=== PATIENT | female | born 1955 | race Caucasian/White ===

== ENCOUNTER 2018-01-30 09:44 | Day surgery (SDC) | payer BC ==
[2018-01-28 14:27] VITALS: BMI 20.6
[~2018-01-30 09:44] MED LIST: LACTATED RINGERS 1,000 ML IV SCH
[2018-01-30 10:44] VITALS: RESP 18; TEMP 97.4
[2018-01-30] MEDS ORDERED: LIDOCAINE 1% 20 ML VIAL (10MG/ML) FOR IV START INTRADERMA ONE (10:47)
[2018-01-30] MEDS ORDERED: fentaNYL (PF) 50 MCG/ML 2 ML AMP ONE (11:12)
[2018-01-30] MEDS ORDERED: PROPOFOL 10 MG/ML 20 ML VIAL IV ONE (11:12)
[2018-01-30] MEDS ORDERED: MIDAZOLAM 2 MG/2 ML VIAL ONE (11:12)
--- NOTE | 2018-01-30 11:32 | P.PCN ---
Date of Procedure: 01/30/18 Procedure(s) Performed: BRIEF HISTORY: Patient is a 63-year-old pleasant female, scheduled for an elective colonoscopy as a part of screening for colorectal neoplasia. PROCEDURE PERFORMED: Colonoscopy. PREOPERATIVE DIAGNOSIS: Screening for colon cancer. IV sedation per Anesthesia. PROCEDURE: After informed consent was obtained, the patient, was brought into the endoscopy unit. IV sedation was administered by Anesthesia under continuous monitoring. Digital rectal examination was normal. Initially the Olympus CF- 160 flexible video colonoscope was then inserted in the rectum, gradually advanced into the cecum without any difficulty. Careful examination was performed as the scope was gradually being withdrawn. Ileocecal valve and the appendiceal orifice were visualized and appeared normal. Prep was excellent. Mucosa of the cecum, ascending colon, transverse colon, descending colon, sigmoid colon, and rectum appeared normal. Retroflexion was performed in the rectum and no lesions were seen. The patient tolerated the procedure well. IMPRESSION: Normal-appearing colon from rectum to cecum with no evidence of colorectal neoplasia. RECOMMENDATIONS: Findings of this examination were discussed with the patient is a family. She was advised to have a repeat screening colonoscopy in 10 years.
[2018-01-30 11:45] VITALS: PULSE 60
[2018-01-30 11:53] VITALS: BP 116/80
== END 2018-01-30 12:13 | disposition home or self-care (01) ==
LOC: ORWHC2ENDO 09:44
PROVIDERS: ATTEND Internal Medicine Gastroenterology
DX: Z12.11 Encounter for screening for malignant neoplasm of colon (principal); Z88.0 Allergy status to penicillin; Z88.2 Allergy status to sulfonamides; Z88.1 Allergy status to other antibiotic agents
CPT/HCPCS: J2250; J3010; J2704; G0121

== ENCOUNTER → 2023-03-08 | Outpatient (CLI) | payer MEDICARE, OTHER ==
[2023-03-08 13:51] LABS: African American GFR (CKD) >90 (>60 ml/min/1.73 sqM); Blood Urea Nitrogen 25 mg/dL (7-17); Non-African American GFR(CKD) 83 (>60 ml/min/1.73 sqM)
--- NOTE | 2023-03-08 15:18 | CT ---
EXAMINATION TYPE: CT angio chest DATE OF EXAM: 03/08/2023 COMPARISON: None HISTORY: thoracic aneurysm CT DLP: 291 mGycm CONTRAST: CTA thoracic aorta with 3-D reconstruction is performed and with IV Contrast, patient injected with 1 00 mL of Isovue 370. Contrast CTA of the thoracic aorta was performed from the lung apex through the upper abdomen. 3D re construction imaging obtained at a separate workstation. CT Chest: THORACIC AORTA: 4 cm aneurysm ascending thoracic aorta without complicating factor. Aortic arch and d escending thoracic aorta is of normal caliber. Mild atheromatous changes seen. There is no evidence for dissection or periaortic collection. LUNGS: The lungs are clear and free of infiltrate or atelectasis. Bronchiectasis is seen within the r ight middle lobe and left upper lobe in the region of the lingula. There is associated limited atelec tasis or infiltrate. Scattered subpleural and pleural nodules within the upper lobes measuring up to 6 mm. MEDIASTINUM: No evidence for mediastinal hematoma. The heart is not enlarged. No evidence for med iastinal mass or adenopathy. HILAR STRUCTURES: No evidence for mass. No hilar adenopathy is appreciated. OTHER: No significant abnormality. IMPRESSION- 1. Mild ascending thoracic aortic aneurysm. 2. Bronchiectasis and areas of atelectasis or focal infiltrate. Scattered nodularity is nonspecific. Follow-up in 6 months is advised.
--- NOTE | 2023-03-08 16:55 | CA ---
Transthoracic Echo Report Name: Alicja Washington Age: 68 Gender: F : 1955 Exam Date: 03/08/2023 14:31 Exam Location: [facility] Ht (in): 65 Wt (lb): 126 Ordering Physician: Eve Layne MD Attending/Referring Phys: Eve Layne MD Rail Detector Car Operator Karen Sunshine RDCS Procedure CPT: Indications: I65.23 OCCLUSION AND STENOSIS OF BILATERAL CAROTID Cardiac Hx: Fam hx of cad Technical Quality: Good Contrast 1: Total Dose (mL): Contrast 2: Total Dose (mL): MEASUREMENTS (Male / Female) Normal Values 2D ECHO LV Diastolic Diameter PLAX 3.6 cm 4.2 - 5.9 / 3.9 - 5.3 cm LV Systolic Diameter PLAX 2.3 cm IVS Diastolic Thickness 0.8 cm 0.6 - 1.0 / 0.6 - 0.9 cm LVPW Diastolic Thickness 0.8 cm 0.6 - 1.0 / 0.6 - 0.9 cm LV Relative Wall Thickness 0.4 RV Internal Dim ED PLAX 3.1 cm LA Systolic Diameter LX 2.8 cm 3.0 - 4.0 / 2.7 - 3.8 cm LV Diastolic Volume MOD 4C 57.5 cm??? LV Systolic Volume MOD 4C 17.7 cm??? LV Ejection Fraction MOD 4C 69.3 % LV Cardiac Index MOD 4C 1526.5 cm???/min???m??? LV Diastolic Length 4C 7.8 cm LV Systolic Length 4C 5.9 cm LV Diastolic Volume MOD 2C 68.8 cm??? LV Systolic Volume MOD 2C 15.9 cm??? LV Ejection Fraction MOD 2C 76.8 % LV Cardiac Index MOD 2C 2024.9 cm???/min???m??? LV Diastolic Length 2C 7.2 cm LV Systolic Length 2C 5.4 cm LA Volume 37.2 cm??? 18 - 58 / 22 - 52 cm??? LA Volume Index 23.0 cm???/m??? 16 - 28 cm???/m??? M-MODE Aortic Root Diameter MM 2.8 cm MV E Point Septal Separation 0.2 cm AV Cusp Separation MM 1.9 cm DOPPLER AV Peak Velocity 113.7 cm/s AV Peak Gradient 5.2 mmHg MV Area PHT 4.0 cm??? Mitral E Point Velocity 88.5 cm/s Mitral A Point Velocity 68.0 cm/s Mitral E to A Ratio 1.3 MV Deceleration Time 189.4 ms MV E' Velocity 8.2 cm/s Mitral E to MV E' Ratio 10.8 TR Peak Velocity 236.4 cm/s TR Peak Gradient 22.3 mmHg Right Ventricular Systolic Press 26.9 mmHg FINDINGS Left Ventricle Left ventricular ejection fraction is estimated at 60-65 %. Small left ventricular cavity. Left ventricular wall thickness normal. Right Ventricle Normal right ventricular size. Right ventricular systolic pressure within normal limits. Right Atrium Normal right atrial size. Left Atrium Normal left atrial size. Mitral Valve Structurally normal mitral valve. No evidence for mitral valve prolapse. No mitral stenosis. Trace mitral regurgitation. Aortic Valve Trileaflet aortic valve. No aortic valve stenosis or regurgitation. Tricuspid Valve Structurally normal tricuspid valve. Mild tricuspid regurgitation. Pulmonic Valve Structurally normal pulmonic valve. No pulmonic regurgitation. Pericardium No pericardial effusion. Aorta Normal size aortic root and proximal ascending aorta. CONCLUSIONS Normal LV size and systolic function Normal valves Previewed by: Dr. Karson Hernandez MD (Electronically Signed) Final Date: 08 March 2023 16:54
--- NOTE | 2023-03-08 19:14 | US ---
EXAMINATION TYPE: US carotid duplex BILAT DATE OF EXAM: 03/08/2023 COMPARISON: NONE CLINICAL INDICATION: Female, 68 years old with history of I65.23 OCCLUSION AND STENOSIS OF BILATERAL CAROTID; TECHNIQUE: Carotid duplex ultrasound examination. Indirect Doppler criteria was utilized. FINDINGS: EXAM MEASUREMENTS: RIGHT: Peak Systolic Velocity (PSV) cm/sec ----- Right CCA: 54.0 ----- Right ICA: 106.0 ----- Right ECA: 56.6 ICA/CCA ratio: 2.0 RIGHT: End Diastole cm/sec ----- Right CCA: 18.5 ----- Right ICA: 35.7 ----- Right ECA: 10.6 LEFT: Peak Systolic Velocity (PSV) cm/sec ----- Left CCA: 57.2 ----- Left ICA: 77.9 ----- Left ECA: 40.4 ICA/CCA ratio: 1.4 LEFT: End Diastole cm/sec ----- Left CCA: 23.4 ----- Left ICA: 51.2 ----- Left ECA: 9.2 VERTEBRALS (direction of flow): Right Vertebral: Antegrade Left Vertebral: Antegrade Rhythm: Normal Right ICA/CCA ratio 2.0 IMPRESSION: Less than 50% stenosis of bilateral carotid bifurcation by peak systolic velocity. Note there is incr eased ratio on the right which could represent 50-69% stenosis. Criteria for Assigning % of Stenosis / Diameter reduction (Estimation based on the indirect measurements of the internal carotid artery velocities (ICA PSV). 1. Normal (no stenosis)=ICA PSV < 125 cm/s: ratio < 2.0: ICA EDV<40 cm/s. 2. Less than 50% stenosis=ICA PSV < 125 cm/s: ratio < 2.0: ICA EDV<40 cm/s. 3. 50 to 69% stenosis=ICA PSV of 125 to 230 cm/s: ration 2.0 ? 4.0: ICA EDV 40-100 cm/s. 4. Greater than 70% stenosis to near occlusion= ICA PSV > 230 cm/s: ratio > 4.0: ICA EDV > 100 cm/s. 5. Near occlusion= ICA PSV velocities may be low or undetectable: variable ratio and ICA EDV. 6. Total occlusion=unable to detect flow.
== END | disposition home or self-care (01) ==
LOC: RADCTMAIN 13:01
PROVIDERS: ATTEND Internal Medicine
DX: I65.23 Occlusion and stenosis of bilateral carotid arteries (principal); I71.21 Aneurysm of the ascending aorta, without rupture; J47.9 Bronchiectasis, uncomplicated; J98.11 Atelectasis; R91.8 Other nonspecific abnormal finding of lung field
CPT/HCPCS: 93306; 82565; 84520; 93880; 71275; 36415; Q9967

== ENCOUNTER → 2023-11-12 | Outpatient (CLI) | payer MEDICARE, OTHER ==
--- NOTE | 2023-11-13 13:46 | BD ---
EXAMINATION TYPE: Axial Bone Density DATE OF EXAM: 11/12/2023 CLINICAL HISTORY: 68 years old Female. ICD-10 CODE: Z87.39 PERSONAL HISTORY OF OSTEOPENIA Height: 64.5 Weight: 130.4 FRAX RISK QUESTIONS: Alcohol (3 or more units per day): no Family History (Parent hip fracture): mother Glucocorticoids (More than 3mos): no (Ex: prednisone, prednisolone, methylprednisolone, dexamethasone, and hydrocortisone). History of Fracture in Adulthood: no Secondary Osteoporosis: 1. Type 1 Diabetes: no 2. Hyperthyroidism: no 3. Menopause before 45: no 4. Malnutrition: no 5. Chronic liver disease: no Rheumatoid Arthritis: no Current Tobacco Use: no RISK FACTORS HISTORY OF: Hip Fracture (Right/Left): no Spine Fracture: no History of Wrist Fracture: no Surgery to Spine/Hip(right/left)/Wrist (right/left): no MEDICATIONS: Thyroid Medications: no Osteoporosis Medications: no EXAM MEASUREMENTS: Bone mineral densitometry was performed using the [employer]XPin System. Bone mineral density as measured about the Lumbar spine is: ----- L1-L4(G/cm2): 1.048 T Score Values are as follows: ----- L1: -1.7 ----- L2: -2.2 ----- L3: -1.1 ----- L4: 0.1 ----- L1-L4: -1.1 Z Score Values are as follows: ----- L1: 0.1 ----- L2: -0.4 ----- L3: 0.8 ----- L4: 1.9 ----- L1-L4: 0.7 Baseline Study Bone mineral density about the R hip (g/cm2): 0.807 Bone mineral density about the L hip (g/cm2): 0.782 T Score values are as follows: -----R Neck: -1.6 -----L Neck: -1.7 -----R Total: -1.6 -----L Total: -1.8 Z Score values are as follows: -----R Neck: 0.0 -----L Neck: -0.1 -----R Total: -0.2 -----L Total: -0.4 Baseline Study FRAX%s: The graph provided illustrates a 16.5% chance for a major osteoporotic fx and a 1.8% chance f or the hips probability for fx in 10 years time. IMPRESSION: Osteopenia (T Score between -2.5 and -1). There is slightly increased risk of fracture and the patient may be considered for treatment. Re-Screen 2-5 years. NOTE: T-SCORE=SD OF THE YOUNG ADULT MEAN.
== END | disposition home or self-care (01) ==
LOC: RADBDWWP 15:42
PROVIDERS: ATTEND Internal Medicine
DX: M85.89 Other specified disorders of bone density and structure, multiple sites (principal); Z87.39 Personal history of other diseases of the musculoskeletal system and connective tissue
CPT/HCPCS: 77080

== ENCOUNTER → 2024-06-06 | Outpatient (CLI) | payer MEDICARE, OTHER ==
[2024-06-06 12:54] LABS: African American GFR (CKD) 68 (>60 ml/min/1.73 sqM); Blood Urea Nitrogen 25 mg/dL (7-17); Non-African American GFR(CKD) 59 (>60 ml/min/1.73 sqM)
--- NOTE | 2024-06-06 13:39 | CT ---
EXAMINATION TYPE: CT angio chest CT DLP: 326.5 mGycm, Automated exposure control for dose reduction was used. DATE OF EXAM: 06/06/2024 1:30 PM COMPARISON: CTA chest 03/08/2023 CLINICAL INDICATION:Female, 69 years old with history of I71.20 THORACIC ANEURYSM WI/O MENTION OF RUP TURE; thoracic aneurysm w/o rupture TECHNIQUE/CONTRAST: CTA scan of the thorax is performed without and with IV Contrast, patient injected with 100 mL of Iso amber 370. 3D reconstructed images are created on an independent workstation and reviewed.. FINDINGS: Lungs/Pleura: No evidence of pleural effusion or pneumothorax. Biapical pleural-parenchymal scarring. Bronchiectasis and scarring within the lingula and right middle lobes. Additional reticular scarring and/or atelectasis within the anterior aspect of the right lower lobe. Right lower lobe calcified gr anuloma. Reticular scarring and atelectasis within the lateral aspect of the right upper lobe. Stable subpleural and pleural nodules within the upper lobes measuring up to 6 mm. No new or enlarging pulm onary nodules. Airway: Large airways are patent. Heart: Heart is within normal limits for size.. No pericardial effusion Vasculature: No evidence of intramural hematoma, or dissection. Four-vessel aortic arch. Stable ascen ding thoracic aortic aneurysm measuring 4.0. The descending thoracic aorta measures up to 2.3 cm. The aortic root measures up to 2.9 cm. No pulmonary embolism identified. Mediastinum: No evidence of adenopathy. Musculoskeletal: No acute osseous abnormalities. Mild multilevel degenerative disc disease. Mild retr olisthesis of L1 on L2 and L2 on L3. Soft Tissues: Unremarkable. Lower neck: No significant findings. Upper Abdomen: The right hepatic dome 1.1 cm cyst. IMPRESSION: 1. Stable ascending thoracic aortic aneurysm measuring up to 4.0 cm. No evidence of intramural hemato ma or dissection. 2. Similar bronchiectasis with areas of scarring and/or atelectasis within the right middle lobe and lingula. Additional minimal reticular scarring or atelectasis within the right lung. 3. Stable nonspecific scattered nodularity measuring less than 6 mm. No new or enlarging pulmonary no dules. [facility], , 06/06/2024 1:37 PM
--- NOTE | 2024-06-06 15:25 | US ---
EXAMINATION TYPE: US carotid duplex BILAT DATE OF EXAM: 06/06/2024 COMPARISON: US 2022 CLINICAL INDICATION: Female, 69 years old with history of [id number] STENOSIS; TECHNIQUE: Grayscale, color Doppler and spectral Doppler evaluation of the bilateral carotid systems and vertebral arteries. Indirect Doppler criteria was utilized. FINDINGS: EXAM MEASUREMENTS: RIGHT: Peak Systolic Velocity (PSV) cm/sec ----- Right CCA: 58.8 ----- Right ICA: 93.4 ----- Right ECA: 52.8 ICA/CCA ratio: 1.6 RIGHT: End Diastole cm/sec ----- Right CCA: 19.6 ----- Right ICA: 32.6 ----- Right ECA: 10.4 LEFT: Peak Systolic Velocity (PSV) cm/sec ----- Left CCA: 64.3 ----- Left ICA: 75.1 ----- Left ECA: 53.2 ICA/CCA ratio: 1.2 LEFT: End Diastole cm/sec ----- Left CCA: 22.7 ----- Left ICA: 31.2 ----- Left ECA: 12.8 VERTEBRALS (direction of flow): Right Vertebral: Antegrade Left Vertebral: Antegrade Rhythm: Normal IMPRESSION: 1. No significant flow-limiting stenosis based on velocities. Criteria for Assigning % of Stenosis / Diameter reduction (Estimation based on the indirect measurements of the internal carotid artery velocities (ICA PSV). 1. Normal (no stenosis)=ICA PSV < 125 cm/s: ratio < 2.0: ICA EDV<40 cm/s. 2. Less than 50% stenosis=ICA PSV < 125 cm/s: ratio < 2.0: ICA EDV<40 cm/s. 3. 50 to 69% stenosis=ICA PSV of 125 to 230 cm/s: ration 2.0 ? 4.0: ICA EDV 40-100 cm/s. 4. Greater than 70% stenosis to near occlusion= ICA PSV > 230 cm/s: ratio > 4.0: ICA EDV > 100 cm/s. 5. Near occlusion= ICA PSV velocities may be low or undetectable: variable ratio and ICA EDV. 6. Total occlusion=unable to detect flow. [facility], Workstation: [facility], 06/06/2024 3:22 PM
--- NOTE | 2024-06-06 17:50 | CA ---
Transthoracic Echo Report Name: Alicja Washington Age: 69 Gender: F : 1955 Exam Date: 06/06/2024 13:36 Exam Location: [facility] Ht (in): 65 Wt (lb): 130 Ordering Physician: Eve Layne MD Attending/Referring Phys: Luggage Attendant Procedure CPT: Indications: I65.23 CAROTID STENOSIS, BILAT Cardiac Hx: Technical Quality: Good Contrast 1: Total Dose (mL): Contrast 2: Total Dose (mL): MEASUREMENTS (Male / Female) Normal Values 2D ECHO LV Diastolic Diameter PLAX 4.2 cm 4.2 - 5.9 / 3.9 - 5.3 cm LV Systolic Diameter PLAX 2.9 cm IVS Diastolic Thickness 0.6 cm 0.6 - 1.0 / 0.6 - 0.9 cm LVPW Diastolic Thickness 0.6 cm 0.6 - 1.0 / 0.6 - 0.9 cm LV Relative Wall Thickness 0.3 RV Internal Dim ED PLAX 2.5 cm LVOT Diameter 1.7 cm Aortic Root Diameter 3.0 cm LA Systolic Diameter LX 3.0 cm 3.0 - 4.0 / 2.7 - 3.8 cm LV Diastolic Volume MOD BP 80.2 cm??? 67 - 155 / 56 - 104 cm??? LV Systolic Volume MOD BP 31.2 cm??? - 58 / 19 - 49 cm??? LV Ejection Fraction MOD BP 61.1 % >= 55 % LV Cardiac Index MOD BP 1906.6 cm???/min???m??? LV Diastolic Volume MOD 4C 83.7 cm??? LV Systolic Volume MOD 4C 28.7 cm??? LV Ejection Fraction MOD 4C 65.7 % LV Cardiac Index MOD 4C 2139.5 cm???/min???m??? LV Diastolic Length 4C 7.5 cm LV Systolic Length 4C 6.2 cm LV Diastolic Volume MOD 2C 73.8 cm??? LV Systolic Volume MOD 2C 31.8 cm??? LV Ejection Fraction MOD 2C 56.9 % LV Cardiac Index MOD 2C 1635.0 cm???/min???m??? LV Diastolic Length 2C 7.1 cm LV Systolic Length 2C 5.8 cm LA Volume 39.2 cm??? 18 - 58 / 22 - 52 cm??? LA Volume Index 23.8 cm???/m??? 16 - 28 cm???/m??? DOPPLER AV Peak Velocity 118.9 cm/s AV Peak Gradient 5.7 mmHg AV Mean Velocity 80.4 cm/s AV Mean Gradient 2.9 mmHg AV Velocity Time Integral 25.6 cm MV Area PHT 3.5 cm??? Mitral E Point Velocity 66.4 cm/s Mitral A Point Velocity 81.5 cm/s Mitral E to A Ratio 0.8 MV Deceleration Time 215.6 ms TR Peak Velocity 231.1 cm/s TR Peak Gradient 21.4 mmHg Right Atrial Pressure 5.0 mmHg Pulmonary Artery Systolic Pressu 26.4 mmHg Right Ventricular Systolic Press 26.4 mmHg FINDINGS Left Ventricle Left ventricular ejection fraction is estimated at 55 to 60 %. Normal left ventricular wall motion. Left ventricular cavity size normal. No obvious regional wall motion abnormalities. Left ventricular wall thickness normal. Right Ventricle Normal right ventricular size. Right ventricular systolic pressure within normal limits. Right Atrium Normal right atrial size. Left Atrium Normal left atrial size. Mitral Valve Structurally normal mitral valve. No mitral stenosis. Mild mitral regurgitation.mitral valve thickened. Aortic Valve Trileaflet aortic valve. No aortic valve stenosis or regurgitation. Aortic valve sclerosis. Tricuspid Valve Structurally normal tricuspid valve. No tricuspid stenosis. mild tricuspid regurgitation. Pulmonic Valve Pulmonic valve not well visualized. No pulmonic regurgitation. No pulmonic stenosis. Pericardium No pericardial effusion. Aorta Normal size aortic root and proximal ascending aorta. CONCLUSIONS 1. Normal left ventricular size and systolic function 2. Mild mitral and tricuspid regurgitation Previewed by: Dr. Cecy Jones MD (Electronically Signed) Final Date: 06 June 2024 17:49
== END | disposition home or self-care (01) ==
LOC: RADCTMAIN 12:10
PROVIDERS: ATTEND Internal Medicine
DX: I65.23 Occlusion and stenosis of bilateral carotid arteries (principal); I71.21 Aneurysm of the ascending aorta, without rupture; J47.9 Bronchiectasis, uncomplicated
CPT/HCPCS: 93306; 82565; 84520; 93880; 71275; 36415; Q9967